=== PATIENT | female | born 1985 | race Caucasian/White ===

== ENCOUNTER 2018-03-13 09:41 | Emergency (ER) | payer OTHER ==
[2018-03-13 09:45] VITALS: BP 121/72; PULSE 71; TEMP 97.9; BMI 29.9
[2018-03-13] MEDS ORDERED: IBUPROFEN 400 MG TABLET (FP) PO ONE ×2 (10:40→10:43)
[2018-03-13] MEDS ORDERED: NEOMYCIN/POLYMYXN/HC OTIC SUSPENSION 10 ML BOTTLE AS ONE (10:40)
[2018-03-13] MEDS ORDERED: NEOMYCIN/POLYMYXN/HC OTIC SOLUTION 10 ML BOTTLE ONE (10:43)
--- NOTE | 2018-03-13 10:46 | PDOC ---
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 Has taken no medication for relief of pain, has not sought any medical attention for evaluation. 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 Denies numbness or tingling to hands or feet, denies any problems with bowel or bladder. Second problem is left ear pain 2 weeks. Denies drainage from ear, states has been painful and progressively worsening and feels is mildly swollen. No fever, Timing/Duration: reports: getting worse Severity: reports: mild, moderate Associated Symptoms: reports: earache. denies: fever/chills, nasal congestion, nasal drainage Past History - Travel Traveled outside of the country in the last 30 days: No Close contact w/someone who was outside of country & ill: No - Past Medical History Allergies/Adverse Reactions: Allergies Allergy/AdvReac Type Severity Reaction Status Date / Time No Known Drug Allergies Allergy Verified 03/13/18 09:41 Home Medications: Ambulatory Orders NK [No Known Home Medication] 03/13/18 Asthma: No Cancer: No Cardiac Disorders: No COPD: No Diabetes: No HTN: No Seizures: No Thyroid Disease: No - Surgical History Orthopedic Surgery: Yes - Suicide/Smoking/Psychosocial Hx Smoking Status: No Smoking History: Never smoked Have you smoked in the past 12 months: No Number of Cigarettes Smoked Daily: 0 Information on smoking cessation initiated: No Hx Alcohol Use: No Drug/Substance Use Hx: No Substance Use Type: None Hx Substance Use Treatment: No Review of Systems - Review of Systems Able to Perform ROS?: Yes Is the patient limited Romansh proficient: Yes Constitutional: Yes: Symptoms Reported, See HPI, Malaise. No: Fever, Loss of Appetite HEENTM: Yes: Symptoms Reported, See HPI, Ear Pain, Ear Discharge Respiratory: Yes: See HPI. No: Symptoms reported, Cough Musculoskeletal: Yes: Symptoms Reported, See HPI, Back Pain All Other Systems: Reviewed and Negative *Physical Exam - Vital Signs Last Vital Signs Temp Pulse Resp BP Pulse Ox 97.9 F 71 18 121/72 100 03/13/18 09:43 03/13/18 09:43 03/13/18 09:43 03/13/18 09:43 03/13/18 09:43 - Physical Exam General Appearance: Yes: Appropriately Dressed, Apparent Distress (low left and right back pain,), Mild Distress HEENT: positive: SUNITA, TMs Normal (left canal erythematous with some exudate and tenderness with exam. TM appears intact without redness or swelling. Right ear negative), Rhinorrhea, Sinus Tenderness. negative: Pharynx Normal Neck: positive: Supple, Lymphadenopathy (R), Lymphadenopathy (L). negative: Tender Respiratory/Chest: positive: Lungs Clear. negative: Normal Breath Sounds Gastrointestinal/Abdominal: positive: Soft. negative: Tender Extremity: positive: Normal Inspection, Normal Range of Motion (mild tenderness reproduced to the lower paravertebral spinous muscles, no true spasm noted no crepitus or step-offs, no bone pain. 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 II-XII NML intact, Fully Oriented, Alert, Normal Mood/ Affect, Normal Response, Motor Strength 5/5 Progress Note - Progress Note Progress Note: Chronic low back pain, mild will treat with ibuprofen Left otitis externa, will treat with Cortisporin *DC/Admit/Observation/Transfer Diagnosis at time of Disposition: Otitis externa, left Qualifiers: Otitis externa type: unspecified type Chronicity: acute Qualified Code(s): H60.502 - Unspecified acute noninfective otitis externa, left ear Low back pain Qualifiers: Chronicity: chronic Back pain laterality: bilateral - Discharge Dispostion Disposition: HOME Condition at time of disposition: Stable Admit: No - Referrals Referrals: Marisel Torres MD [Primary Care Provider] - [facility] [Provider Group] - Patient Instructions Printed Discharge Instructions: DI for Otitis Externa Additional Instructions: Rest, lots of fluids; water, teas, soups Hot wet soaks to ear/hot packs may help relieve some pain May use [id number] anesthetic drops to ears to help relieve some pain Avoid getting water in ear, may use alcohol drops to help dry up any water retained in ears Severe using earplugs when swimming to avoid any water retention Continue ibuprofen or Tylenol for pain and fevers Cortisporin otic solution 3-5 drops 3 times a day for 5 days followup with private physician / ENT doctor in 2-3 days Return to emergency department or see private physician immediately for swelling , redness, from ears, or fevers, - Post Discharge Activity
== END 2018-03-13 11:09 | disposition home or self-care (01) ==
LOC: JERFT 09:41
DX: H60.502 Unspecified acute noninfective otitis externa, left ear (principal)
CPT/HCPCS: 99281-25

== ENCOUNTER 2020-09-06 09:47 | Emergency (ER) | payer OTHER ==
[2020-09-06 09:53] VITALS: BP 143/88; PULSE 93; TEMP 98.2; BMI 33.5
--- OUTSIDE RECORDS SUMMARY | 2020-09-06 10:15 | XMS ---
:1985 [facility] Providers Name Role Phone NESTRO REZA Unavailable NESTOR REZA Unavailable NESTOR REZA Unavailable NESTOR REZA Unavailable NESTOR REZA Unavailable Pino Unavailable IVETTE REZA Unavailable IVETTE REZA Unavailable OYEKOLA SUPERVISING FLOORPERSON Unavailable OYEKOLA SUPERVISING FLOORPERSON Unavailable OYEKOLA SUPERVISING FLOORPERSON Unavailable OYEKOLA SUPERVISING FLOORPERSON Unavailable RUTHIE REZA Unavailable Stan, Mally Unavailable Unavailable Taher, D Unavailable Unavailable Taher, D Unavailable Unavailable Taher, D Unavailable Unavailable Taher, D Unavailable Unavailable Re-disclosure Warning The records that you are about to access may contain information from federally- assisted alcohol or drug abuse programs. If such information is present, then the following federally mandated warning applies: This information has been disclosed to you from records protected by federal confidentiality rules (42 CFR part 2). The federal rules prohibit you from making any further disclosure of this information unless further disclosure is expressly permitted by the written consent of the person to whom it pertains or as otherwise permitted by 42 CFR part 2. A general authorization for the release of medical or other information is NOT sufficient for this purpose. The Federal rules restrict any use of the information to criminally investigate or prosecute any alcohol or drug abuse patient.The records that you are about to access may contain highly sensitive health information, the redisclosure of which is protected by Article 27-F of the [facility] Public Health law. If you continue you may haveaccess to information: Regarding HIV / AIDS; Provided by facilities licensed or operated by the [facility] Office of Mental Health; or Provided by the [facility] Office for People With Developmental Disabilities. If such information is present, then the following [facility] mandated warning applies: This information has been disclosed to you from confidential records which are protected by state law. State law prohibits you from making any further disclosure of this information without the specific written consent of the person to whom it pertains, or as otherwise permitted by law. Any unauthorized further disclosure in violation of state law may result in a fine or half-way sentence or both. A general authorization for the release of medical or other information is NOT sufficient authorization for further disclosure. Allergies and Adverse Reactions Type Description Substance Reaction Status Data Source(s ) Allergy to No Known Allergies No known GREENW AY ([facility] substance allergies [facility] ) Allergy to No Known Allergies No known GREENW AY ([facility] substance allergies [facility] ) Allergy to No Known Allergies No known GREENW AY ([facility] substance allergies [facility] ) Allergy to No Known Allergies No known GREENW AY ([facility] substance allergies [facility] ) Allergy to No Known Allergies No known GREENW AY ([facility] substance allergies [facility] ) Allergy to No Known Allergies No known GREENW AY ([facility] substance allergies [facility] ) Allergy to No Known Allergies No known GREENW AY ([facility] substance allergies [facility] ) Allergy to No Known Allergies No known GREENW AY ([facility] substance allergies [facility] ) Allergy to No Known Allergies No known GREENW AY ([facility] substance allergies [facility] ) Allergy to No Known Allergies No known GREENW AY ([facility] substance allergies [facility] Allergy to No Known Allergies No known GREENW AY ([facility] substance allergies [facility] ) Allergy to No Known Allergies No known GREENW AY ([facility] substance allergies [facility] ) Allergy to No Known Allergies No known GREENW AY ([facility] substance allergies [facility] ) Encounters Encounter Providers Location Date Indications Data Source(s ) Outpatient<t Attender: Katie 12/16/ CHE mally [facility] 2019 ([place] ID="[facility] tionID0">OFF EST - ICE 12/16/ VISIT</td><t 2020 d>ANGEL 03:49: NESTOR 24 PM </td><td>Y EST [facility]</td>< td> 0</td><td></ td> Outpatient<t Attender: Katie 12/16/ CHE bal [facility] 2019 ([place] ID="[facility] 01:27: [facility]ighborhood [facility] Cent[facility] r) tionID1">PAT EST - IENT </td 2020 ><td>Lizbet 11:59: Pino</td> 00 PM <td>[facility]</td>< td> 0</td><td></ td> Outpatient<t Attender: Katie 12/03/ CHE d [facility] 2019 ([place] ID="[facility] Health 03:59: Neighborhood [facility] 00 PM Health Cente r) tionID2">*No EST - Show*</td><t 12/03/ d>[place] [id number] [facility] 11:59: </td><td>Y 00 PM [facility]</td>< td> 0</td><td></ td> Outpatient<t Attender: Katie 11/08/ Elevated Liver EnzymesE levated CHE d [facility] 2019 Liver EnzymesElevated Melva er (Fe Brandt ID="encounte [facility] 10:00: EnzymesObesityObesityO [facility] Health Rocio ChurchD3">OFF EST - ICE 11/08/ VISIT</td><t 2019 d[facility] 12:[facility] OYEKOLA 09 PM SUPERVISING FLOORPERSON</td><td> EST [facility]</td>< td> 9</td><td><c ontent ID="encounte rDiagnosisID 3-0">Obesity </content>, <content ID="encounte rDiagnosisID 3-1">Elevate d Liver Enzymes</con tent></td> Elevated Liver Enzymes Elevated Liver Enzymes Elevated Liver Enzymes Obesity Obesity Obesity Outpatient<td Attender: Katie 11/08/2019 NUNDA ID="encounterTypeDescriptionID4">OFFICE [facility] 09:30:0 0 AM (Fe Brandt VISIT</td><td>[facility] EST - Neighborhood MD</td><td>[facility] 11/08/2019 Health Center</td><td>11/08/2019</td><td></td> 10:40:0 4 AM Center) EST Outpatient<td Attender: Katie 11/02/2019 NUNDA ID="encounterTypeDescriptionID5">*[facility] 04:02: 00 PM (Fe Brandt *</td><td>[facility] SUPERVISING FLOORPERSON</td><td>[facility] 11/02/2019 Health Center</td><td>11/02/2019</td><td></td> 11:59:0 0 PM Center) EST Outpatient<td Attender: Katie 10/29/2019 NUNDA ID="encounterTypeDescriptionID6">[facility] (Fe Brandt CH*</td><td>[facility] EST - Neighborhood SUPERVISING FLOORPERSON</td><td>[facility] SUPERVISING FLOORPERSON Center 10/29/2019 Health Center</td><td>10/29/2019</td><td></td> 11:59:0 0 PM Center) EST Outpatient<td Attender: Katie 10/26/2019 CHE ID="encounterTypeDescriptionID7">HOME CHILD CARE PROVIDER [facility] 11:30:00 A M (Fe Brandt ANNUAL</td><td>[facility] EST - Neighborhood MD</td><td>[facility] 10/26/2019 Health Center</td><td>10/26/2019</td><td></td> 01:41:5 0 PM Center) EST Outpatient<td Attender: Katie 10/26/2019 CHE ID="encounterTypeDescriptionID8">[facility] 10[facility] (Fe Brandt Sonogram</td><td>JEFFERSON HENDRICKS MD Health EST - Neighborhood MD</td><td>[facility] Center 10/26/2019 Health Center</td><td>10/26/2019</td><td></td> 10:35:5 0 AM Center) EST Outpatient<td Attender: Katie 10/19/2019 CHE ID="encounterTypeDescriptionID9">PATIENT [facility] 02:35: 00 PM (Fe Brandt ADVOCACY</td><td>[facility] EST - [facility]</td><td>[facility] 2018 Health Center</td><td>10/19/2019</td><td></td> 11:59:0 0 PM Center) EST Outpatient<td Attender: Katie 10/19/2019 P CHE ID="[id number]">OFFICE [facility] 09:30: 00 AM u (Fe Brandt VISIT</td><td[facility] EST - r Neighborhood SUPERVISING FLOORPERSON</td><td>[facility] 10/19/2019 e [facility]</td><td>10/19/2019</td><td><lobo 11:57: 59 AM H Center) nt EST y ID="[id number]">Obesity</c p ontent>, <content e ID="[id number]">Elevated r Liver Enzymes</content>, <content c ID="[id number]">Pure h Hypercholesterolemia</content></td> o l e s t e r o l e m i a E l e v a t e d L i v e r E n z y m e s P u r e H y p e r c h o l e s t e r o l e m i a E l e v a t e d L i v e r E n z y m e s P u r e H y p e r c h o l e s t e r o l e m i a E l e v a t e d L i v e r E n z y m e s P u r e H y p e r c h o l e s t e r o l e m i a E l e v a t e d L i v e r E n z y m e s P u r e H y p e r c h o l e s t e r o l e m i a E l e v a t e d L i v e r E n z y m e s P u r e H y p e r c h o l e s t e r o l e m i a E l e v a t e d L i v e r E n z y m e s P u r e H y p e r c h o l e s t e r o l e m i a E l e v a t e d L i v e r E n z y m e s P u r e H y p e r c h o l e s t e r o l e m i a E l e v a t e d L i v e r E n z y m e s P u r e H y p e r c h o l e s t e r o l e m i a E l e v a t e d L i v e r E n z y m e s P u r e H y p e r c h o l e s t e r o l e m i a E l e v a t e d L i v e r E n z y m e s O b e s i t y O b e s i t y O b e s i t y O b e s i t y O b e s i t y O b e s i t y O b e s i t y O b e s i t y O b e s i t y O b e s i t y Pure Hypercholesterolemia Elevated Liver Enzymes Pure Hypercholesterolemia Elevated Liver Enzymes Pure Hypercholesterolemia Elevated Liver Enzymes Pure Hypercholesterolemia Elevated Liver Enzymes Pure Hypercholesterolemia Elevated Liver Enzymes Pure Hypercholesterolemia Elevated Liver Enzymes Pure Hypercholesterolemia Elevated Liver Enzymes Pure Hypercholesterolemia Elevated Liver Enzymes Pure Hypercholesterolemia Elevated Liver Enzymes Pure Hypercholesterolemia Elevated Liver Enzymes Obesity Obesity Obesity Obesity Obesity Obesity Obesity Obesity Obesity Obesity Outpatient<td Attender: Katie 10/13/2019 NUNDA ID="[id number]">*OUTREACH*</td><td>[facility] 11:35:00 AM (Fe Brandt [facility]</td><td>[facility] T - Neighborhood Center</td><td>10/13/2019</td><td></td> SUPERVISING FLOORPERSON Center [address] [place] [address] 11:59:00 PM Center) EST Outpatient<td Attender: Katie 10/12/2019 NUNDA ID="[id number]">EKG</td><td>DILIP STEELE [facility] 09:00:00 AM (Fe Brandt MD</td><td>[facility] IVETTE REZA [facility] EST - [facility] Center</td><td>10/12/2019</td><td></td> Center [address] [place] [address] 10:15:45 AM Center) EST Outpatient<td ID="[id number]">PATIENT Attender : Katie 2019 [facility]</td><td>Lizbet Pino</td><td>[facility] 02:39:00 PM ([facility]</td><td>2019</td><td></td> [facility] 2019 Health 11:59:00 PM Center) EST Outpatient<td Attender: Katie 2019 O CHE ID="[id number]">WALKINS</td><td>EDITH ESPINOZA [facility] 10:15:00 AM t ([facility] SUPERVISING FLOORPERSON</td><td>[facility] T - [facility]</td><td>2019</td><td><content SUPERVISING FLOORPERSON Center 09/18 e Health ID="[id number]">Obesity</content>, <content 02:17:29 PM r Center) ID="[id number]">Limb Pain Foot and EST S Toes</content>, <content ID="[id number]">Other p Specified General Medical Examinations</content></td> e c i f i e d G e n e r a l M e d i c a l E x a m i n a t i o n s L i m b P a i n F o o t a n d T o e s O t h e r S p e c i f i e d G e n e r a l M e d i c a l E x a m i n a t i o n s L i m b P a i n F o o t a n d T o e s O t h e r S p e c i f i e d G e n e r a l M e d i c a l E x a m i n a t i o n s L i m b P a i n F o o t a n d T o e s O t h e r S p e c i f i e d G e n e r a l M e d i c a l E x a m i n a t i o n s L i m b P a i n F o o t a n d T o e s O t h e r S p e c i f i e d G e n e r a l M e d i c a l E x a m i n a t i o n s L i m b P a i n F o o t a n d T o e s O t h e r S p e c i f i e d G e n e r a l M e d i c a l E x a m i n a t i o n s L i m b P a i n F o o t a n d T o e s O t h e r S p e c i f i e d G e n e r a l M e d i c a l E x a m i n a t i o n s L i m b P a i n F o o t a n d T o e s O t h e r S p e c i f i e d G e n e r a l M e d i c a l E x a m i n a t i o n s L i m b P a i n F o o t a n d T o e s O t h e r S p e c i f i e d G e n e r a l M e d i c a l E x a m i n a t i o n s L i m b P a i n F o o t a n d T o e s O t h e r S p e c i f i e d G e n e r a l M e d i c a l E x a m i n a t i o n s L i m b P a i n F o o t a n d T o e s O t h e r S p e c i f i e d G e n e r a l M e d i c a l E x a m i n a t i o n s L i m b P a i n F o o t a n d T o e s O t h e r S p e c i f i e d G e n e r a l M e d i c a l E x a m i n a t i o n s L i m b P a i n F o o t a n d T o e s O t h e r S p e c i f i e d G e n e r a l M e d i c a l E x a m i n a t i o n s L i m b P a i n F o o t a n d T o e s O b e s i t y O b e s i t y O b e s i t y O b e s i t y O b e s i t y O b e s i t y O b e s i t y O b e s i t y O b e s i t y O b e s i t y O b e s i t y O b e s i t y O b e s i t y Other Specified General Medical Examinat ions Limb Pain Foot and Toes Other Specified General Medical Examinat ions Limb Pain Foot and Toes Other Specified General Medical Examinat ions Limb Pain Foot and Toes Other Specified General Medical Examinat ions Limb Pain Foot and Toes Other Specified General Medical Examinat ions Limb Pain Foot and Toes Other Specified General Medical Examinat ions Limb Pain Foot and Toes Other Specified General Medical Examinat ions Limb Pain Foot and Toes Other Specified General Medical Examinat ions Limb Pain Foot and Toes Other Specified General Medical Examinat ions Limb Pain Foot and Toes Other Specified General Medical Examinat ions Limb Pain Foot and Toes Other Specified General Medical Examinat ions Limb Pain Foot and Toes Other Specified General Medical Examinat ions Limb Pain Foot and Toes Other Specified General Medical Examinat ions Limb Pain Foot and Toes Obesity Obesity Obesity Obesity Obesity Obesity Obesity Obesity Obesity Obesity Obesity Obesity Obesity Medications Medication Brand Start Product Dose Route Administrative Pharmacy [facility] Indications Reaction Description Data Name Date Form Instructions Instructions Source(s) Ibuprofen Ibupro 10/11/ UNIT 1 complet Ibuprofe n CHE 400 MG Oral fen 2018 ed ([place] Tablet 400MG 12:00: Rikki Ibuprofen Oral 00 AM [facility] o 400MG Oral Tablet EST od Heal th Tablet Center) Insurance Providers Payer name Policy type Policy ID Covered Covered alliance party's Policy P boby / Coverage alliance party ID relationship to Fisher Inf ormation type fisher MEDICAID [id number] SP [id number] Surgeries/Procedures Procedure Description Date Indications Data Source(s) No history of No history of 12/16/2019 CHE (Iva nt hyperlipidemia hyperlipidemia 12:00:00 AM Rikki Lopez [facility]) No history of diabetes No history of 12/16/2019 LISSY POOL ([place] mellitus diabetes mellitus 12:00:00 AM [facility]) No family history of No family history of 12/16/2019 NUNDA ([facility] CAD in mother/sister CAD in mother/sister 12:00:00 AM [facility] at age <65 at age <65 [facility]) No family history of No family history of 12/16/2019 NUNDA ([facility] CAD in father/brother CAD in father/brother 12:00:00 AM [facility] at age <55 at age <55 [facility]) Blood pressure was not Blood pressure was 12/16/2019 NUNDA ([facility] high not high 12:00:00 AM [facility]) pt told has ASD in pt told has ASD in 12/16/2019 GRE ENWAY ([facility] [place] 12:00:00 AM [facility]) No prior serious No prior serious 11/08/2019 SARITHA Y ([facility] illness illness 12:00:00 AM [facility]) Bmi is documented BMI > NORMAL 11/08/2019 NUNDA ([facility] above normal DOCUMENTED W F/U PLAN 12:00:00 AM [facility] parameters and a [facility] er) follow-up plan is documented Sign language or oral Sign language or Oral 11/08/2019 NUNDA ([facility] interpretive services, Interpretation per 15 12:00:00 AM [facility] per 15 minutes Minutes [facility] ) Para 2 Para 2 10/26/2019 NUNDA ([facility] 12:00:00 AM [facility]) LMP: 2019 LMP: 2019 10/26/2019 NUNDA ([facility] 12:00:00 AM [facility]) 2 2 10/26/2019 NUNDA ([facility] 12:00:00 AM [facility]) Aborta 0 Aborta 0 10/26/2019 NUNDA ([facility] 12:00:00 AM [facility]) ABDOMINAL 4 QUADS ABDOMINAL 4 QUADS 10/26/2019 [facility] ([facility] 12:00:00 AM [facility]) History of History of 10/26/2019 NUNDA ([facility] hyperlipidemia BEING hyperlipidemia BEING 12:00:00 AM [facility] FOLLOWED UP FOR LIVER FOLLOWED UP FOR LIVER [facility]) PROBLEM PER PATIENT PROBLEM PER PATIENT Date of last Date of last 10/19/2019 NUNDA ([facility] menstruation menstruation 12:00:00 AM [facility] 10/10/2019 10/10/2019 [facility]) Sign language or oral Sign language or Oral 10/19/2019 NUNDA ([facility] interpretive services, Interpretation per 15 12:00:00 AM [facility] per 15 minutes Minutes [facility] ) Bmi is documented BMI > NORMAL 10/19/2019 NUNDA ([facility] above normal DOCUMENTED W F/U PLAN 12:00:00 AM [facility] parameters and [facility] er) follow-up plan is documented No prior serious No prior serious 10/19/2019 [facility] Y ([facility] illness illness 12:00:00 AM [facility]) EKG EKG 10/12/2019 NUNDA ([facility] 12:00:00 AM [facility]) No prior serious No prior serious 10/12/2019 [facility] Y ([facility] illness illness 12:00:00 AM [facility]) Date of last Date of last 10/12/2019 NUNDA ([facility] menstruation menstruation 12:00:00 AM [facility] 10/10/2019 10/10/2019 [facility]) URINALYSIS MICROSCOPIC URINALYSIS 2019 [facility] ([facility] MICROSCOPIC 12:00:00 AM [facility]) LIPID PANEL LIPID PANEL 2019 NUNDA ([facility] 12:00:00 AM [facility]) HEMOGLOBIN A1C HEMOGLOBIN A1C 2019 NUNDA ([facility] 12:00:00 AM [facility]) METABOLIC PANEL METABOLIC PANEL 2019 NUNDA ([facility] COMPREHE COMPREHE 12:00:00 AM [facility]) [id number] 2019 [facility] ([facility] 12:00:00 AM [facility]) Bmi is documented BMI > NORMAL 2019 NUNDA ([facility] above normal DOCUMENTED W F/U PLAN 12:00:00 AM [facility] er) follow-up plan is documented Results ID Date Data Source [id number] 10/26/2019 01:27:00 PM [facility] (Iva nt [facility]) Name Value Range Interpretation Description Data Source(s ) Supporting Code Document(s ) Sissy sp Negative Sissy CHE rRNA species ([place] [Presence] in [facility] Vaginal fluid [facility] by DNA probe Trichomonas Negative Trichomonas CHE vaginalis rRNA vaginalis ([place] [Presence] in [facility] Genital [facility] specimen by DNA probe Gardnerella Negative Gardnerella CHE vaginalis rRNA vaginalis ([place] [Presence] in [facility]) specimen by DNA probe ID Date Data Source [id number] 10/26/2019 01:26:00 PM EST CHE ([facility]) Name Value Range Interpretation Description Data Source(s ) Supporting Code Document(s ) Neisseria Negative Neisseria CHE gonorrhoeae gonorrhoeae, ([place] rRNA [Presence] [facility]) specimen by Probe and target amplification method Chlamydia Negative Chlamydia CHE trachomatis trachomatis, ([place] rRNA [Presence] [facility]) specimen by Probe and target amplification method ID Date Data Source [id number] 10/26/2019 01:24:00 PM EST CHE ([facility]) Name Value Range Interpretation Description Data Source(s ) Supporting Code Document(s ) Microscopic . . CHE ([place] observation Rikki [Identifier] [facility]) specimen by Other stain Note: PAPSMR Note: CHE ([facility]) Note: The Pap smear is a screening test designed to aid in the detection ofpremalignant and malignant conditions of the uterine cervix. It is not adiagnostic procedure and should not be used as the sole means of detectingcervical cancer. Both false-positive and false-negative report s do occur. Pathology report final See Note DIAGNOSIS: NIKO AY ([place] diagnosis Narrative [facility]) Note: NEGATIVE FOR INTRAEPITHELIAL LESIO N OR MALIGNANCY. Statement of adequacy See Note Specimen adequacy: CHE ([place] [Interpretation] of Cervical N [facility] or vaginal smear or scraping C enter) by Cyto stain Note: Satisfactory for evaluation. Endo cervical and/or squamous metaplasticcells (endocervical component) are present. 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 Cytology report of IGLPAP Test Methodology: GRE ENWAY ([place] Cervical or vaginal smear [facility]) or scraping Cyto stain.thin prep Note: This liquid based ThinPrep(R) pap test was screened with theuse of an image guided system. ID Date Data Source [id number] 10/13/2019 05:18:12 PM EST GREENWA Y ([place] [id number] [facility]) Name Value Range Interpretation Description Data Source(s ) Supporting Code Document(s ) No Results No Results No Results CHE ([facility] Recorded For [facility] And [facility]) ID Date Data Source [id number] 10/13/2019 11:36:57 AM EST [place] ([place] [id number] [facility]) Name Value Range Interpretation Description Data Source(s ) Supporting Code Document(s ) No Results No Results No Results CHE ([facility] For [facility]) ID Date Data Source [id number] 10/12/2019 12:12:06 PM EST [place] ([place] [id number] [facility]) Name Value Range Interpretation Description Data Source(s ) Supporting Code Document(s ) No Results No Results No Results CHE ([facility] For [facility]) ID Date Data Source [id number] 10/12/2019 09:15:00 AM EST CHE ([facility]) Name Value Range Interpretation Description Data Source(s ) Supporting Code Document(s ) Hemoglobin 5.3 % Hemoglobin A1c CHE (Moun t A1c/Hemoglobi Rikki n.total in [facility]) Note: Prediabetes: 5.7 - 6.4 Diabetes: >6.4 Glycemic control for adults with diabetes: <7.0 ID Date Data Source [id number] 10/12/2019 09:15:00 AM OLI BOL[place] ([facility]) Name Value Range Interpretation Description Data Source(s ) Supporting Code Document(s ) Cholesterol 184 Cholesterol, CHE [Mass/volume] mg/dL Total ([place] in Serum or [facility] Plasma [facility]) Cholesterol in 45 HDL Cholesterol CHE HDL mg/dL ([place] [Mass/volume] [facility] in Serum or Health Center) Plasma Triglyceride 80 Triglycerides CHE [Mass/volume] mg/dL ([place] in Serum or [facility] Plasma [facility]) Laboratory N/A Comment: CHE comment [Text] (Fe Brandt in Report [facility]) Cholesterol in 2.7 LDL/HDL Ratio CHE LDL/Cholestero ratio ([place] in HDL [Mass Neighborhood Ratio] in [facility]) Serum or Plasma Note: LDL/HDL Ratio Men Women 1/2 Avg.Risk 1.0 1.5 Avg.Risk 3.6 3.2 2X Avg.Risk 6.2 5.0 3X Avg.Risk 8.0 6.1 Cholesterol in VLDL 16 mg/dL VLDL Cholesterol [place] ([place] [Mass/volume] [facility] or Plasma by Health Cent er) calculation Cholesterol in LDL 123 mg/dL Above high LDL Cholesterol GREE NWAY ([facility] [Mass/volume] in normal [facility] Serum or Plasma by Health Cent er) calculation ID Date Data Source [id number] 10/12/2019 09:15:00 AM OLI BOL[place] ([facility]) Name Value Range Interpretation Description Data Sup porting Code Source(s) Document(s ) Calcium 9.1 Calcium CHE [Mass/volume] in mg/dL ([place] Serum or Plasma [facility]) Glucose 108 Above high Glucose CHE [Mass/volume] in mg/dL normal ([facility] or Plasma [facility]) Urea nitrogen 11 BUN CHE [Mass/volume] in mg/dL ([place] Serum or Plasma [facility]) Albumin 4.4 Albumin CHE [Mass/volume] in g/dL ([facility] or [facility]) Protein 7.1 Protein, CHE [Mass/volume] in g/dL Total ([place] Serum or [facility]) Aspartate 33 IU/L AST (SGOT) CHE aminotransferase ([place] [Enzymatic [facility] activity/volume] Health in Serum or Plasma Center) Alkaline 75 IU/L Alkaline CHE phosphatase Phosphatase ([place] [Enzymatic [facility] activity/volume] Health in Serum or Plasma [place]) Bilirubin.total 0.5 Bilirubin, CHE [Mass/volume] in mg/dL Total ([facility] or [facility]) Chloride 106 Chloride CHE [Moles/volume] in mmol/L ([facility] or [facility]) Potassium 4.1 Potassium CHE [Moles/volume] in mmol/L ([facility]) Sodium 137 Sodium CHE [Moles/volume] in mmol/L ([facility]) Creatinine 0.73 Creatinine CHE [Mass/volume] in mg/dL ([facility]) Carbon dioxide, 21 Carbon CHE total mmol/L Dioxide, ([place] [Moles/volume] in Total [facility] or [facility]) Alanine 52 IU/L Above high ALT (SGPT) CHE aminotransferase normal ([place] [Enzymatic [facility] activity/volume] [facility] in Serum or Plasma [place]) Albumin/Globulin 1.6 A/G Ratio CHE [Mass Ratio] in ([facility] or [facility]) Globulin 2.7 Globulin, CHE [Mass/volume] in g/dL Total ([place] Serum by [facility]) Urea 15 BUN/Creatinin CHE nitrogen/Creatinin e Ratio ([facility] on e [Mass Ratio] in [facility]) eGFR If NonAfricn 109 eGFR If CHE Am mL/min/ NonAfricn Am ([address]) eGFR If Africn Am 125 eGFR If CHE mL/min/ Africn Am ([address]) Procedure Vital Signs ID Date Data Source [id number] Name Value Range Interpretation Code Description Data Source(s) PhenX - pain, 0 0 CHE ([facility] abdominal - type [facility] and [facility]) protocol [facility] Cna Body surface area Derived from 1.82 m2 1.82 m2 CHE ([facility]) [facility] Cna Body mass index (BMI) 30.8 kg/m2 30.8 kg/m2 [facility] ([place] [[facility]] [facility]) R[facility] Hospital Cna Body weight 174 [lb_av] 174 [lb_av] CHE ([facility]) [facility] Hospital Cna Body height 63 [in_us] 63 [in_us] CHE ([facility]) [facility] Hospital Cna Body temperature 97.8 [degF] 97.8 [degF] [place] AY ([facility]) [facility] Hospital Cna Heart rate 58 /min 58 /min NUNDA ([facility]) [facility] Hospital Cna Diastolic blood pressure 74 mm[Hg] 74 mm[Hg] NUNDA ([facility]) [facility] Hospital Cna Systolic blood pressure 126 mm[Hg] 126 mm[Hg] [facility] ([facility]) Rf Hospital Cna PhenX - pain, abdominal - type and 0 0 NUNDA ([facility]) pt is here for sono report . Body surface area Derived from 1.83 m2 1.83 m2 NUNDA ([facility]) pt is here for sono report . Body mass index (BMI) 31.1 kg/m2 31.1 kg/m2 [facility] ([place] [[facility]] [facility]) pt is here for sono report . Body weight 175.5 [lb_av] 175.5 [lb_av] [place] ([facility]) pt is here for sono report . Body height 63 [in_us] 63 [in_us] NUNDA ([facility]) pt is here for sono report . Body temperature 97.5 [degF] 97.5 [degF] [place] AY ([facility]) pt is here for sono report . Heart rate 56 /min 56 /min NUNDA ([facility]) pt is here for sono report . Diastolic blood pressure 71 mm[Hg] 71 mm[Hg] NUNDA ([facility]) pt is here for sono report . Systolic blood pressure 103 mm[Hg] 103 mm[Hg] G REEN[place]AY ([facility]) pt is here for sono report . Diastolic blood pressure 78 mm[Hg] 78 mm[Hg] CHE ([facility]) Pt here for labs result LMP 11/05/2019 Systolic blood pressure 116 mm[Hg] 116 mm[Hg] G REEN[place]AY ([facility]) Pt here for labs result LMP 11/05/2019 PhenX - pain, abdominal - type and 0 0 CHE ([facility]) Pt here for labs result LMP 11/05/2019 Body surface area Derived from 1.84 m2 1.84 m2 CHE ([facility]) Pt here for labs result LMP 11/05/2019 Body mass index (BMI) 31.4 kg/m2 31.4 kg/m2 [place] ([place] [Ratio] [facility]) Pt here for labs result LMP 11/05/2019 Body weight 177 [lb_av] 177 [lb_av] CHE ([facility]) Pt here for labs result LMP 11/05/2019 Body height 63 [in_us] 63 [in_us] CHE ([facility]) Pt here for labs result LMP 11/05/2019 Body temperature 97.8 [degF] 97.8 [degF] [facility] AY ([facility]) Pt here for labs result LMP 11/05/2019 Heart rate 52 /min 52 /min CHE ([facility]) Pt here for labs result LMP 11/05/2019 PhenX - pain, abdominal - type and 0 0 CHE ([facility]) 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 LMP 2019 Body surface area Derived from 1.86 m2 1.86 m2 CHE ([facility]) 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 LMP 2019 Body mass index (BMI) 32.2 kg/m2 32.2 kg/m2 [place] ([place] [Ratio] [facility]) 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 LMP 2019 Body weight 182 [lb_av] 182 [lb_av] CHE ([facility]) 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 LMP 2019 Body height 63 [in_us] 63 [in_us] CHE ([facility]) 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 LMP 2019 Body temperature 98.4 [degF] 98.4 [degF] [place] AY ([facility]) 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 LMP 2019 Heart rate 59 /min 59 /min CHE ([facility]) 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 LMP 2019 Diastolic blood pressure 70 mm[Hg] 70 mm[Hg] CHE ([facility]) 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 LMP 2019 Systolic blood pressure 106 mm[Hg] 106 mm[Hg] G RE[place]AY ([facility]) 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 LMP 2019 PhenX - pain, abdominal - type and 0 0 CHE ([facility]) Patient is here for an abdomen sonogram. Body height 63 [in_us] 63 [in_us] CHE ([facility]) Patient is here for an abdomen sonogram. PhenX - pain, abdominal - type and 0 0 CHE ([facility]) Pt presents today for labs results Body surface area Derived from 1.85 m2 1.85 m2 CHE ([facility]) Pt presents today for labs results Body mass index (BMI) 31.9 kg/m2 31.9 kg/m2 [place] ([place] [Ratio] [facility]) Pt presents today for labs results Body weight 180 [lb_av] 180 [lb_av] CHE ([facility]) Pt presents today for labs results Body height 63 [in_us] 63 [in_us] CHE ([facility]) Pt presents today for labs results Body temperature 97.8 [degF] 97.8 [degF] [place] AY ([facility]) Pt presents today for labs results Heart rate 63 /min 63 /min CHE ([facility]) Pt presents today for labs results Diastolic blood pressure 71 mm[Hg] 71 mm[Hg] CHE ([facility]) Pt presents today for labs results Systolic blood pressure 110 mm[Hg] 110 mm[Hg] [facility] ([facility]) Pt presents today for labs results PhenX - pain, abdominal - type and 5 5 NUNDA ([facility]) Pt is here for 1 year of dizziness, feet pain. Body surface area Derived from 1.87 m2 1.87 m2 NUNDA ([facility]) Pt is here for 1 year of dizziness, feet pain. Body mass index (BMI) 32.8 kg/m2 32.8 kg/m2 [place] ([place] [Ratio] [facility]) Pt is here for 1 year of dizziness, feet pain. Body weight 185 [lb_av] 185 [lb_av] CHE ( [facility]) Pt is here for 1 year of dizziness, feet pain. Body height 63 [in_us] 63 [in_us] CHE ([facility]) Pt is here for 1 year of dizziness, feet pain. Body temperature 97 [degF] 97 [degF] CHE ([facility]) Pt is here for 1 year of dizziness, feet pain. Heart rate 62 /min 62 /min NUNDA ([facility]) Pt is here for 1 year of dizziness, feet pain. Diastolic blood pressure 86 mm[Hg] 86 mm[Hg] NUNDA ([facility]) Pt is here for 1 year of dizziness, feet pain. Systolic blood pressure 125 mm[Hg] 125 mm[Hg] G [facility] ([facility]) Pt is here for 1 year of dizziness, feet pain. Patient Treatment Plan of Care Planned Activity Planned Date Details Description Data Source (s) Ibuprofen 400 MG Oral 2019 12:00:00 CHE ([facility])
[2020-09-06] MEDS ORDERED: IBUPROFEN 600 MG TABLET (FP) PO ONE ×2 (10:24→10:25)
--- NOTE | 2020-09-06 10:24 | PDOC ---
History of Present Illness - General Chief Complaint: Ear Problem Stated Complaint: YAKOV EAR PAIN Time Seen by Provider: 09/06/20 09:55 History Source: Patient Exam Limitations: No Limitations - History of Present Illness Initial Comments: 09/06/20 10:17 Patient is a 34-year-old female with no past medical history presents to the ED with complaint of left ear pain for the last 4 days. The patient states that the pain started after washing her hair. She states her right ear is also hurting her but not nearly as badly. She denies any fevers or chills. She does admit to drainage out of her left ear. She denies headaches. She took Advil yesterday without any relief. Past History - Medical History Allergies/Adverse Reactions: Allergies Allergy/AdvReac Type Severity Reaction Status Date / Time No Known Drug Allergies Allergy Verified 09/06/20 09:53 Home Medications: Ambulatory Orders Ciprofloxacin HCl/Dexameth [Ciprodex Otic Suspension] 4 drop BID 7 Days #1 bottle 09/06/20 Asthma: No Cancer: No Cardiac Disorders: No COPD: No Diabetes: No HTN: No Seizures: No Thyroid Disease: No - Surgical History Orthopedic Surgery: Yes - Reproductive History Is Patient Now?: No - Psycho-Social/Smoking History Smoking Status: No Smoking History: Never smoked Have you smoked in the past 12 months: No Number of Cigarettes Smoked Daily: 0 - Substance Abuse Hx (Audit-C & DAST Scrn) How often the patient has a drink containing alcohol: Never Score: In Men: 4 or > Positive; In Women: 3 or > Positive: 0 Screen Result (Pos requires Nsg. Audit-10AR): Negative In the last yr the pt used illegal drug/Rx for NonMed reason: No Score: Yes response is considered Positive: 0 Screen Result (Positive result requires Nsg. DAST-10): Negative Review of Systems - Review of Systems Comments:: 09/06/20 10:24 - Review of Systems Able to Perform ROS?: Yes Constitutional: No: Fever, Chills, Loss of Appetite, Night Sweats, Weakness HEENTM: No: Eye Pain, Vision changes, Throat Pain, Throat Swelling, Mouth Pain, Difficulty Swallowing; positive: Left ear pain Respiratory: No: Cough, Shortness of Breath, Wheezing, Sputum Production Cardiac (ROS): No: Chest Pain, Chest Tightness, Palpitations, Irregular Heart Beat, Edema ABD/GI: No: Nausea, Vomiting, Abdominal Pain, Diarrhea : No Dysuria, No Hematuria, No Frequency, No Urgency Musculoskeletal: No: Muscle Pain, Back Pain, Joint Pain, Muscle Weakness, Neck Pain Integumentary: No: Lesions, Rash Neurological: No: Headache, Numbness, Tingling, Weakness, Speech Difficulties *Physical Exam - Vital Signs Last Vital Signs Temp Pulse Resp BP Pulse Ox 98.2 F 93 H 17 143/88 100 09/06/20 09:50 09/06/20 09:50 09/06/20 09:50 09/06/20 09:50 09/06/20 09:50 - Physical Exam 09/06/20 10:25 - Physical Exam General Appearance: Nourished, Appropriately Dressed, No Distress HEENT: EOMI, Normal Voice, No Pharyngeal Erythema, No Muffled/Hoarse voice, No Tonsillar Exudate, No Tonsillar Erythema, No Nasal Congestion, No Rhinorrhea, Hearing Grossly Normal, No TM Dullness, No TM Erythema; left ear canal with significant edema and drainage appreciated. Unable to visualize the TM. Tende rness with pressing the tragus and pulling the pinna. No tenderness to the left mastoid. Neck: Supple, No Lymphadenopathy (R), No Lymphadenopathy (L), No Rigidity, No Decreased range of motion Respiratory/Chest: Lungs Clear, Normal Breath Sounds. No Respiratory Distress, No Accessory Muscle Use Cardiovascular: Regular Rhythm, Regular Rate, S1, S2 Gastrointestinal/Abdominal: Normal Bowel Sounds, Soft. Non-tender, No Guarding, No Rebound, No Rigidity Musculoskeletal: Normal Inspection. No Decreased Range of Motion Extremity: Normal Capillary Refill, Normal Inspection Integumentary: Normal Color, Dry. 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 Plan: -Motrin given in the ED -A prescription for Ciprodex otic suspension sent to the pharmacy -Patient understands and agrees this treatment plan and the patient is stable for discharge. Discharge - Discharge Information Problems reviewed: Yes Clinical Impression/Diagnosis: Left otitis externa Qualifiers: Otitis externa type: other infective Chronicity: acute Qualified Code(s): H60.392 - Other infective otitis externa, left ear Condition: Stable Disposition: HOME - Additional Discharge Information Prescriptions: Ciprofloxacin HCl/Dexameth [Ciprodex Otic Suspension] 4 drop BID 7 Days #1 bottle - Follow up/Referral Referrals: Tj Rosales MD [Staff Physician] - 2 Days - Patient Discharge Instructions Patient Printed Discharge Instructions: DI for Otitis Externa Additional Instructions: Use the drops as prescribed and complete the entire course. Even if you are feeling better, continue to take the antibiotics for 7 days. Drink plenty of fluids and get plenty of rest. Take Motrin or Tylenol for pain as needed. - Post Discharge Activity Work/Back to School Note: Back to Work
== END 2020-09-06 10:43 | disposition home or self-care (01) ==
LOC: JERFT 09:47
DX: H60.392 Other infective otitis externa, left ear (principal)
CPT/HCPCS: 99283-25

== ENCOUNTER 2021-02-15 01:17 | Emergency (ER) | payer OTHER ==
[2021-02-15 02:02] VITALS: BP 124/78; PULSE 61; TEMP 98.4; BMI 31.8
[2021-02-15] MEDS ORDERED: LIDOCAINE VISCOUS 2% ORAL/TOP 20 ML UNIT-DOSE CUP MM ONE (02:09)
[2021-02-15] MEDS ORDERED: LIDOCAINE VISCOUS 2% ORAL/TOP 20 ML UNIT-DOSE CUP ONE (02:11)
== END 2021-02-15 03:09 | disposition home or self-care (01) ==
LOC: JER 01:17
DX: H92.09 Otalgia, unspecified ear (principal)
CPT/HCPCS: 99283-25